=== PATIENT | male | born 1985 | race Caucasian/White ===

== ENCOUNTER → 2021-02-20 14:21 | Outpatient (CLI) | payer OTHER, SELFPAY ==
--- NOTE | 2021-02-20 14:23 | DI.MRI.S_ITS ---
PROCEDURE: MR SHOULDER LT WO CON INDICATIONS: Pain in left shoulder TECHNIQUE: Noncontrast oblique coronal T2 fast spin echo with fat saturation, oblique sagittal T1 spin echo and T2 fast spin echo with fat saturation, axial T1 spin echo and T2 fast spin echo with fat saturation through the shoulder. COMPARISON: None. FINDINGS: Image quality: Excellent. Rotator cuff: There is partial-thickness tear of the supraspinatus involving both bursal and articular surfaces with associated tendon thickening and probable distal tendon calcification suggesting calcific tendinitis. Partial thickness tear of the infraspinatus tendon is seen involving articular surface and the footprint. There is mild subscapularis tendinitis without discrete tendon tear. No rotator cuff muscle atrophy. Bones and bursae: No bone marrow contusions or fractures. Subchondral cyst formation of posterior lateral the humeral head near the infraspinatus tendon insertion. Moderate acromioclavicular joint degeneration. The acromion demonstrates conventional anatomy, without an os acromiale. No pathologic subacromial-subdeltoid or subcoracoid bursal fluid is present. Capsule and soft tissues: Labrum appears intact. The long head of the biceps tendon demonstrates normal location and morphology. The rotator interval appears normal, without fibrosis. The coracohumeral ligament is normal in thickness. IMPRESSION: 1. Partial thickness tear of the supraspinatus tendon and associated tendinitis with possible distal tendon calcification (calcific tendinitis). 2. Partial-thickness tear of the infraspinatus tendon involving the articular surface in the footprint. There is subchondral cyst formation of the humeral head at the infraspinatus tendon insertion, suggesting posterior impingement. 3. Mild subscapularis tendinitis. 4. Moderate acromioclavicular joint degeneration. Dictated by: Kamryn Pérez M.D. on 02/22/2021 at 9:00 Approved by: Kamryn Pérez M.D. on 02/22/2021 at 11:53
== END ==
PROVIDERS: Referring Provider Family Medicine; Visit Provider Family Medicine
DX: M25.512 Pain in left shoulder (principal); M75.112 Incomplete rotator cuff tear or rupture of left shoulder, not specified as traumatic; M75.92 Shoulder lesion, unspecified, left shoulder; M19.012 Primary osteoarthritis, left shoulder
CPT/HCPCS: 73221